=== PATIENT | female | born 1995 | race Caucasian/White ===

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

== ENCOUNTER 2017-09-09 11:38 | Emergency (ER) | payer OTHER ==
[2017-09-09 13:45] VITALS: BP 139/66
--- NOTE | 2017-09-09 14:00 | UC ---
Complaint Female HPI - HPI Summary HPI Summary: Dysuria, burning, frequency starting yesterday morning. Took azo yesterday; sx much better today, but pt is concerned about orange urine. - History Of Current Complaint Chief Complaint: UCGU Stated Complaint: URINARY COMPLAINT Time Seen by Provider: 09/09/17 13:53 Hx Obtained From: Patient Hx Last Menstrual Period: 08/18/17 ?: No Onset/Duration: Gradual Onset, Lasting Days Timing: Constant Severity Initially: Mild Severity Currently: Mild Character: Dull, Burning, Cramping Aggravating Factor(s): Urination Alleviating Factor(s): Meds Associated Signs And Symptoms: Positive: Negative - Allergies/Home Medications Allergies/Adverse Reactions: Allergies Allergy/AdvReac Type Severity Reaction Status Date / Time No Known Allergies Allergy Verified 09/09/17 13:46 PMH/Surg Hx/FS Hx/Imm Hx Previously Healthy: Yes - Surgical History Surgical History: Yes Surgery Procedure, Year, and Place: 2011 - Family History Known Family History: Positive: Other - mother presently being treated for asthmatic bronchitis - Social History Occupation: Student Lives: Alone Alcohol Use: None Substance Use Type: None Smoking Status (MU): Never Smoked Tobacco - Immunization History Most Recent Influenza Vaccination: NOT CURRENT Review of Systems Constitutional: Negative Skin: Negative Eyes: Negative ENT: Negative Respiratory: Negative Cardiovascular: Negative Gastrointestinal: Negative Genitourinary: Dysuria, Frequency, Urgency Motor: Negative Neurovascular: Negative Musculoskeletal: Negative Neurological: Negative Psychological: Negative Is Patient Immunocompromised?: No All Other Systems Reviewed And Are Negative: Yes Physical Exam Triage Information Reviewed: Yes Appearance: Well-Appearing, No Pain Distress, Well-Nourished Vital Signs: Initial Vital Signs Temp 97.8 F 09/09/17 13:38 Pulse 72 09/09/17 13:38 Resp 18 09/09/17 13:38 BP 139/66 09/09/17 13:38 Pulse Ox 100 09/09/17 13:38 Vital Signs Reviewed: Yes Eye Exam: Normal Eyes: Positive: Conjunctiva Clear ENT Exam: Normal ENT: Positive: Normal ENT inspection, Hearing grossly normal, Pharynx normal, TMs normal Neck exam: Normal Respiratory Exam: Normal Respiratory: Positive: Chest non-tender, Lungs clear, Normal breath sounds, No respiratory distress, No accessory muscle use Cardiovascular Exam: Normal Cardiovascular: Positive: RRR, No Murmur Abdomen Description: Negative: CVA Tenderness (R), CVA Tenderness (L) Musculoskeletal Exam: Normal Neurological Exam: Normal Neurological: Positive: Alert Psychological Exam: Normal Skin Exam: Normal Complaint Female Dx - Differential Dx/Diagnosis Provider Diagnoses: UTI Discharge - Discharge Plan Condition: Stable Disposition: HOME Prescriptions: Nitrofurantoin Monohyd Macro [Macrobid] 100 mg PO BID #10 cap Patient Education Materials: Urinary Tract Infection in Women (ED) Referrals: Non Staff,Doctor [Primary Care Provider] - Additional Instructions: As we discussed, very mild UTIs can and do go away if you increase your fluid intake and urinate frequently. Since your symptoms feel better today, you can push fluids and wait for 24-28 hours. If you continue to be symptom-free, no need to take the antibiotics. If yous symptoms come back or worsen, take the entire course of nitrofurantoin. Come back at any time if you have fever, back pain, or are otherwise worsening despite treatment.
== END 2017-09-09 14:17 | disposition home or self-care (01) ==
LOC: UCCORT 11:38
DX: N39.0 Urinary tract infection, site not specified (principal)
CPT/HCPCS: 81003; 87086; 99211; G0463

== ENCOUNTER 2018-07-18 15:55 | Emergency (ER) | payer OTHER ==
[2018-07-18 17:32] VITALS: BP 112/59
--- NOTE | 2018-07-18 18:50 | UC ---
General HPI - HPI Summary HPI Summary: Per strategy director: "Onset of right neck swelling this morning, pt has been congested this past week. Pt states area is painful with chewing and opening her mouth. Pt's parent and brother concerned about possibility of mumps." -Symptoms started this morning. She has swelling over her right mandible and behind her right ear. Denies any fevers and chills. She is not noticed any purulent discharge coming from the inside of her mouth. She lives off campus at [place]. Her roommates early this weekend. She is up-to-date with her immunizations. She has no sick contacts. No known mumps in the community. Denies any abdominal pain, nausea or vomiting. -She denies . She is currently on her period. She is on OCPs. -denies ST/dental proceudres in 2 wks prior. NKDA. - History of Current Complaint Chief Complaint: UCGeneralIllness Stated Complaint: ST/SWOLLEN GLAND Time Seen by Provider: 07/18/18 18:39 Hx Last Menstrual Period: 07/14/18 Pain Intensity: 3 - Allergy/Home Medications Allergies/Adverse Reactions: Allergies Allergy/AdvReac Type Severity Reaction Status Date / Time No Known Allergies Allergy Verified 07/18/18 17:24 Home Medications: Home Medications Acetaminophen TAB* [Tylenol TAB*] 650 mg PO Q4H PRN 07/18/18 [History Confirmed 07/18/18] PMH/Surg Hx/FS Hx/Imm Hx Previously Healthy: Yes - Surgical History Surgical History: Yes Surgery Procedure, [facility] and [facility] - Family History Known Family History: Positive: Other - mother presently being treated for asthmatic bronchitis - Social History Alcohol Use: Occasionally Substance Use Type: None Smoking Status (MU): Never Smoked Tobacco - Immunization History Most Recent Influenza Vaccination: NOT CURRENT Review of Systems Constitutional: Negative Skin: Negative Eyes: Negative ENT: Other - see above. no purulent dc Respiratory: Negative Cardiovascular: Negative Gastrointestinal: Negative Genitourinary: Negative Motor: Negative Neurovascular: Negative Musculoskeletal: Negative Neurological: Negative Psychological: Negative Is Patient Immunocompromised?: No All Other Systems Reviewed And Are Negative: Yes Physical Exam Triage Information Reviewed: Yes Appearance: Well-Appearing, No Pain Distress, Well-Nourished Vital Signs: Initial Vital Signs Temp 98.2 F 09/21/18 17:26 Pulse 65 07/18/18 17:26 Resp 18 07/18/18 17:26 BP 112/59 07/18/18 17:26 Pulse Ox 100 07/18/18 17:26 Vital Signs Reviewed: Yes Eye Exam: Normal Eyes: Positive: Conjunctiva Clear ENT: Positive: Pharynx normal, Other - moderate swelling at angle of right mandible and post-auricular. no purulent dc coming from stentson's duct after 30 sec massage. elevation of right ear. Dental Exam: Normal Neck: Positive: Supple, Other: - right cervical mild swelling. Respiratory Exam: Normal Respiratory: Positive: Lungs clear, Normal breath sounds, No respiratory distress, No accessory muscle use Cardiovascular Exam: Normal Cardiovascular: Positive: RRR, No Murmur Abdomen Description: Positive: Nontender, Soft Bowel Sounds: Positive: Present Musculoskeletal Exam: Normal Neurological Exam: Normal Psychological Exam: Normal Skin Exam: Normal Course/Dx - Course Course Of Treatment: Pt requests to f/u with Dr Curry locally. -I have spoken w / health dept Melissa Garrido Zhaopincaterina & we reviewed case. Seclusion x 5 days after start of swelling. -IgG & IgM titers & buccal viral cx swab for mumps - Differential Dx - Multi-Symptom Differential Diagnoses: Other - parotitis, mumps Provider Diagnoses: parotitis, right Discharge - Sign-Out/Discharge Documenting (check all that apply): Patient Departure All imaging exams completed and their final reports reviewed: No Studies - Discharge Plan Condition: Stable Disposition: HOME Prescriptions: Amoxicillin/Clavulanate TAB* [Augmentin TAB 875*] 875 mg PO BID #20 tab Forms: *School Release Referrals: No Primary Care Phys,NOPCP [Primary Care Provider] - Trevin Curry MD [Medical Doctor] - 3 Days Additional Instructions: -Make sure to take a probiotic daily while on antibiotics to help prevent a potential complication of antibiotic use called c diff. Some well known brands that can be found OTC are florastor, align and colon health. You can eat activia yogurt as well instead. Make sure to complete the entire prescription unless advised otherwise by your health care provider. -Make sure to use backup control with condoms if you're sexually active as antibiotics can decreased efficacy of control. -You should be secluded for 5 days after the start of your symptoms. We are giving you a note to stay out of class through 07/22 with return on 07/23/18. -You will be hearing from the [facility] de[facility] as well. -We are giving you the first dose of augmentin here at urgent care. We discussed common side effects of augmentin including GI upset. -tyleno/ibuprofen for pain. - Billing Disposition and Condition Condition: STABLE Disposition: Home
[2018-07-18] MEDS ORDERED: Amoxicillin/Clavulanate TAB* 875 MG PO ONE (20:02)
== END 2018-07-18 20:19 | disposition home or self-care (01) ==
LOC: UCCORT 15:55
DX: K11.20 Sialoadenitis, unspecified (principal)
CPT/HCPCS: 99212; A9270-GY; G0463

== ENCOUNTER 2018-08-16 18:03 | Emergency (ER) | payer OTHER ==
[2018-08-16 18:42] VITALS: BP 118/66
[2018-08-16] MEDS ORDERED: Cephalexin CAP* 500 MG PO ONE (19:00)
--- NOTE | 2018-08-18 13:55 | UC ---
Discharge - Sign-Out/Discharge Documenting (check all that apply): Post-Discharge Follow Up All imaging exams completed and their final reports reviewed: No Studies - Discharge Plan Condition: Stable Disposition: HOME Prescriptions: Cephalexin CAP* [Keflex CAP*] 500 mg PO BID #13 cap Patient Education Materials: Urinary Tract Infection in Women (ED) Referrals: No Primary Care Phys,NOPCP [Primary Care Provider] - Additional Instructions: Take the medication as prescribed. I recommend 25,500 unit cranberry pills ( natures Bounty) 1 every hour for 12 hours, then daily as needed. increase fluid intake and get plenty of rest. Urine culture results will be available in a few days, we will call if we need to switch the antibiotic - Billing Disposition and Condition Condition: STABLE Disposition: Home
--- NOTE | 2018-09-04 11:46 | UC ---
Complaint Female HPI - HPI Summary HPI Summary: Patient has been treated with # days of Bactrim for UTI, still experiencing symtpoms, denies any redniess, irritaton or vaginal discharge. has some urgency - History Of Current Complaint Chief Complaint: UCGU Stated Complaint: URINARY Time Seen by Provider: 08/16/18 18:39 Hx Obtained From: Patient Hx Last Menstrual Period: 07/14/18 ?: No Onset/Duration: Sudden Onset, Lasting Days Timing: Lasting Days Severity Initially: Mild Severity Currently: Mild Pain Intensity: 0 Pain Scale Used: 0-10 Numeric Character: Burning Aggravating Factor(s): Urination - Allergies/Home Medications Allergies/Adverse Reactions: Allergies Allergy/AdvReac Type Severity Reaction Status Date / Time No Known Allergies Allergy Verified 08/16/18 18:42 PMH/Surg Hx/FS Hx/Imm Hx Previously Healthy: Yes - Surgical History Surgical History: Yes Surgery Procedure, Year, and Place: [facility] - Family History Known Family History: Positive: Other - mother presently being treated for asthmatic bronchitis - Social History Alcohol Use: Occasionally Substance Use Type: None Smoking Status (MU): Never Smoked Tobacco - Immunization History Most Recent Influenza Vaccination: NOT CURRENT Review of Systems All Other Systems Reviewed And Are Negative: Yes Constitutional: Positive: Negative Skin: Positive: Negative Eyes: Positive: Blurred Vision ENT: Positive: Negative Respiratory: Positive: Negative Cardiovascular: Positive: Negative Gastrointestinal: Positive: Negative Genitourinary: Positive: Dysuria, Urgency Motor: Positive: Negative Neurovascular: Positive: Negative Musculoskeletal: Positive: Negative Neurological: Positive: Negative Psychological: Positive: Negative Is Patient Immunocompromised?: No Physical Exam Triage Information Reviewed: Yes Appearance: Pain Distress Vital Signs: Initial Vital Signs Temp 98.6 F 08/16/18 18:38 Pulse 79 08/16/18 18:38 Resp 18 08/16/18 18:38 BP 118/66 08/16/18 18:38 Pulse Ox 97 08/16/18 18:38 Vital Signs Reviewed: Yes Eye Exam: Normal ENT Exam: Normal Neck exam: Normal Respiratory Exam: Normal Respiratory: Positive: Chest non-tender, Lungs clear, Normal breath sounds Cardiovascular Exam: Normal Cardiovascular: Positive: RRR, No Murmur, Pulses Normal Abdomen Description: Positive: Nontender, Soft, CVA Tenderness (R) - neg, CVA Tenderness (L) - eg Musculoskeletal Exam: Normal Neurological Exam: Normal Psychological Exam: Normal Skin Exam: Normal Complaint Female Dx - Course Course Of Treatment: hx obtained, exam performed ,meds reviewed, UA and culture obtained, treated based on clincial presentation, follow up as needed - Differential Dx/Diagnosis Differential Diagnosis/HQI/PQRI: Urinary Tract Infection Provider Diagnoses: UTI Discharge - Sign-Out/Discharge Documenting (check all that apply): Patient Departure All imaging exams completed and their final reports reviewed: No Studies - Discharge Plan Condition: Stable Disposition: HOME Prescriptions: Cephalexin CAP* [Keflex CAP*] 500 mg PO BID #13 cap Patient Education Materials: Urinary Tract Infection in Women (ED) Referrals: No Primary Care Phys,NOPCP [Primary Care Provider] - Additional Instructions: Take the medication as prescribed. I recommend 25,500 unit cranberry pills ( natures Bounty) 1 every hour for 12 hours, then daily as needed. increase fluid intake and get plenty of rest. Urine culture results will be available in a few days, we will call if we need to switch the antibiotic - Billing Disposition and Condition Condition: STABLE Disposition: Home
== END 2018-08-16 19:11 | disposition home or self-care (01) ==
LOC: UCCORT 18:03
DX: N39.0 Urinary tract infection, site not specified (principal)
CPT/HCPCS: 87086; 99212; A9270-GY; G0463